=== PATIENT | male | born 1985 | race Caucasian/White ===

== ENCOUNTER → 2024-05-11 | Outpatient (CLI) | payer BC, SELFPAY ==
[2024-05-11 09:19] LABS: Absolute Lymphocyte Count 1.92 X10^3/uL (0.83-4.51); Basophil# 0.05 X10^3/uL; Basophil% 0.8 % (0-1); Eosinophil# 0.51 X10^3/uL; Eosinophils% 8.7 % (0-5); Hematocrit 41.7 % (40-54); Hemoglobin 13.6 g/dL (13.0-16.5); Lymphocyte # 1.92 X10^3/ul (0.83-4.51); Lymphocyte % 32.6 % (19-41); Mean Corp Hgb Conc 32.6 g/dL (32-36); Mean Corpuscular Hgb 26.8 pg (27.0-32.0); Mean Corpuscular Volume 82.2 fL (80-94); Mean Platelet Vol. 9.1 fl (6.2-12.0); Monocyte# 0.45 X10^3/uL; Monocyte% 7.6 % (0-10); NRBC Flagged by Analyzer 0 % (0-5); Neutrophil # 2.95 X10^3/uL (2.7-7.7); Neutrophil % 50.1 % (47-70); Platelet Count 341 K/mm3 (150-450); RBC Distribution Width CV 13.2 % (11.6-14.6); RBC Distribution Width SD 39.6 fl (35.1-43.9); Red Blood Count 5.07 M/mm3 (4.6-6.2); White Blood Count 5.9 K/mm3 (4.4-11.0)
[2024-05-11 10:01] LABS: ALB/GLOB Ratio 1.1 RATIO (0.9-2.4); AST(SGOT) 26 U/L (15-37); Alanine Aminotransfer ALT/SGPT 28 U/L (16-61); Albumin, Serum 4.1 g/dL (3.2-5.0); Alkaline Phosphatase 91 U/L (45-117); Anion Gap 8 (5-15); BUN 11 mg/dL (7-18); BUN/Creat Ratio 10.9 RATIO (10-20); Calcium,Total 9.4 mg/dL (8.5-10.1); Chloride 106 mmol/L (98-107); Cholesterol 213 mg/dL (200); Creatinine, Serum 1.01 mg/dL (0.70-1.30); EST Glomerular Filtration Rate 87 mL/min (>60); Est Glom Filt Rate - Afr Amer 105 mL/min (>60); Globulin 3.7 g/dL (2.2-4.2); Glucose 99 mg/dL (74-106); High Density Lipoprotein 41 mg/dL; Potassium 4.1 mmol/L (3.5-5.1); Protein, Total 7.8 g/dL (6.4-8.2); Sodium Level 140 mmol/L (136-145); Triglycerides 236 mg/dL; Very Low Density Lipoprotein 47 mg/dL (5-40)
[2024-05-11 10:03] LABS: Hemoglobin A1c 5.5 % (3.8-5.6)
[2024-05-12 13:08] LABS: PSA, Free 0.36 ng/mL; PSA, Free % 32.4 % (.)
== END | disposition home or self-care (01) ==
LOC: LAB 08:34
PROVIDERS: Referring Provider Family Medicine; Visit Provider Family Medicine
DX: E78.2 Mixed hyperlipidemia (principal); Z13.228 Encounter for screening for other metabolic disorders; Z12.5 Encounter for screening for malignant neoplasm of prostate; Z13.6 Encounter for screening for cardiovascular disorders
CPT/HCPCS: 36415; 80053; 80061; 83036; 84153; 84154; 84443; 85025

== ENCOUNTER 2024-08-23 06:17 | Day surgery (SDC) | payer BC, SELFPAY ==
[2024-08-23 06:35] VITALS: BP 112/83; PULSE 65; RESP 14; TEMP 36.7; O2SAT 100; BMI 25.9
--- NOTE | 2024-08-23 07:15 | PCM.HP.BLA ---
History and Physical Date of Admission: 08/23/24 Date of Service: 08/12/24 MR#: [id number] Acct: [id number] Name: ISAIAS BARRETO Rep #: [id number] : 1985 Provider: Dr. 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: No Is patient in pain?: No Allergies No Known Allergies Allergy (Unverified 08/12/24 08:35) Medications ?Medication ?Instructions ?Recorded ?Confirmed ?Type Hydrocortisone 2.5%/lidocaine 5% #30 ea 08/12/24 08/12/24 Rx suppository (cmpd) (hydrocortisone 2.5%/lidocaine 5% suppository (compound)) amlodipine 5 mg tablet 5 mg PO QDAY 08/12/24 08/12/24 History atorvastatin 10 mg tablet 10 mg PO QHS 08/12/24 08/12/24 History dextroamphetamine-amphetamine ER 20 mg PO QAM 08/12/24 08/12/24 History 20 mg 24hr capsule,extend release (Adderall XR) escitalopram oxalate 20 mg tablet 20 mg PO QDAY 08/12/24 08/12/24 History (Lexapro) fenofibrate nanocrystallized 145 145 mg PO QDAY 08/12/24 08/12/24 History mg tablet Have you fallen in the past year?: No PFSH Medical History (Updated 08/12/24 @ 11:[address] Fabiola Oseguera MD) Hypertension Hemorrhoids Mixed hyperlipidemia Attention deficit disorder Blood in stool Surgical History (Updated 08/12/24 @ 08:46 by Karina Saavedra) No history of previous surgery Family History (Updated 08/12/24 @ 08:49 by Karina Saavedra) Father Cancer Prostate cancerGrandfather Cancer Prostate cancer Social History (Updated 08/12/24 @ 08:49 by Karina Saavedra) Smoking Status: Never smoker alcohol intake: current alcohol intake frequency: 0-2 drinks per day Alcohol type: beer, wine and hard liquor substance use type: does not use HPI HPI HPI: 39-year-old male presents due to bright red blood per rectum. Patient states that he has had this for quite some time but states it has been worse in the last 2 months. It does not happen with every bowel movement but is happening more often. Patient does admit to spending prolonged times on the toilet and some straining. Patient states he has been using some Preparation H which has helped. Patient does state he has known hemorrhoids. Patient states he has bowel movements daily denies any family history of colon cancer. Patient never had previous colonoscopy. Patient denies any chronic abdominal pain/nausea/vomiting. Patient states he has reflux maybe once every 2 to 3 months. ROS General General: Yes fatigue; No weight change, appetite, colon cancer, breast cancer or weakness HEENT HEENT: No difficulty swallowing, eye injury, eye surgery, swollen glands or hoarseness Endo Endocrine: No thyroid disease, diabetes mellitus, thyroid cancer, Hair loss, heat intolerance or cold intolerance Skin Skin: No rash or changing moles Breast Breast: No left breast lump, right breast lump, nipple discharge, breast pain, abnormal mammogram, abnormal US or breast enlargement Musc Musculoskeletal: No back problems, arthritis, rheumatoid arthritis, gout or joint pain Cardio Cardiovascular: Yes high blood pressure; No murmur, pacemaker, heart disease, atrial fibrillation, heart attack, heart stent, palpitations, shortness of breat with exertion or chest pain Additional Details: Hyperlipidemia Psych Psychiatric: No depression, anxiety or hearing voices Additional Details: ADD Resp Respiratory: Yes shortness of breath, No sleep apnea, No cough, No COPD, No asthma, No emphysema and No wheezing Gastro Gastrointestinal: No abdominal pain, No nausea or vomiting, No diarrhea, No constipation, Yes blood in stool, No acid reflux, Yes hemorrhoids, No ulcers, No gallbladder problem and No black,tarry stools Laz Hematologic: No blood thinners, No blood disorders, No bleeding, No anemia and No blood clots Neuro Neurologic: No system reviewed and no additional complaints, except as documented, No as per HPI, No abnormal gait, No abnormal hearing, No abnormal movements, No abnormal speech, No behavioral changes, No burning sensations, No confusion, No convulsions, No disequilibrium, No dizziness, No localized weakness, No frequent falls, No headache(s), No lack of coordination, No loss of vision, No memory loss, No numbness, No other visual disturbances, No radicular pain, No restless legs, No sensory deficit, No syncope, No tingling, No tremor(s), No weakness and No other Exam Const General: cooperative, healthy appearing, comfortable and no acute distress HENOH Head: normocephalic and atraumatic Neck Neck: supple Resp Effort & Inspection: normal respiratory effort Cardio Rate: regular rate GI Inspection: non-distended Palpation: soft, no hernias and nontender Other: SEB: Patient some external residual tissue at 12:00 and 4:00; with internal hemorrhoids largest at 12:00 appear to be a little irritated, no gross blood no mass on exam Skin General: no rashes or lesions noted Neuro General: CN's II-XI intact bilaterally Extrem General: normal to inspection Psych Mental Status: mental status grossly normal Attitude: cooperative Assessment and Plan Assessment and Plan (1) BRBPR (bright red blood per rectum): Status: Acute Medications: New Hydrocortisone 2.5%/lidocaine 5% suppository (cmpd) (hydrocortisone 2.5%/lidocaine 5% suppository (compound)) Insert one rectally twice daily as needed 30 ea 1RF Plan Discussed with patient due to the internal hemorrhoids would recommend a suppository not just the cream. Recommend not sitting for prolonged periods on the toilet as well as avoid straining. I have discussed the above with the patient. I have offered the patient colonoscopy for evaluation. I have explained the risks/benefits of the procedure and described the procedure. I have discussed the risks with the patient, including but not limited to: infection, bleeding, perforation of the GI tract requiring emergency surgery, inability to complete the procedure, injury to any internal organs, complications of anesthesia, etc. - the patient understands and agrees to proceed. I have answered all the patient's questions to the patient's satisfaction and the patient has no further questions. The patient has been given instructions for the colon cleansing preparation. MiraLAX Dulcolax prep?1 day clears Fabiola Oseguera M.D. Pager: [phone] [facility] [address] [place] [address], [address] [place] [address] Office: [phone] Coding Level of Care Code Off vis,new,level 3 Diagnoses BRBPR (bright red blood per rectum) K62.5 Clinical Quality Measures Falls Risk Screening/Assistive Devices Have you fallen in the past year?: No 08/12/24 1105 <Electronically signed by Fabiola Oseguera MD> Date Fabiola Oseguera MD
--- NOTE | 2024-08-23 07:23 | PRE.ANES_ITS ---
ASA Classification* ASA Classification ASA Classification: 2 Assessment & Plan Anesthesia* Anesthesia Assessment Anesthesia Assessment: Discussed sedation and/or anesthesia options, risks, benefits, and alternatives with patient/parents/legal guardian/POA. Questions invited. The patient/parents/legal guardian/POA seems to understand and agrees to proceed with anesthesia plan. Reviewed the physical assessment, medical history, allergy history and patient home medications list prior to surgery/procedure/anesthetic and documented any changes. Performed airway and anesthesia risk assessments. Anesthesia Type Anesthesia Type: MAC History Source History Obtained from:: Patient and Chart Anesthesia Focused Assessment* Temperature: 98.0 F Pulse Rate: 65 Blood Pressure: 112/83 Respiratory Rate: 14 Pulse Ox: 100 Oxygen Delivery Method: Room Air Airway Assessment Mouth opens: >3 cm Mallampati Score: I Teeth Condition: Intact Neck Range of motion (ROM): Full ROM Focused Labs Anesthesia Preop lab: CBC WBC 5.9 K/mm3 (4.4-11.0) 05/11/24 08:36 RBC 5.07 M/mm3 (4.6-6.2) 05/11/24 08:36 Hgb 13.6 g/dL (13.0-16.5) 05/11/24 08:36 Hct 41.7 % (40-54) 05/11/24 08:36 Plt Count 341 K/mm3 (150-450) 05/11/24 08:36 CHEMISTRY Potassium 4.1 mmol/L (3.5-5.1) 05/11/24 08:36 Sodium 140 mmol/L (136-145) 05/11/24 08:36 BUN 11 mg/dL (7-18) 05/11/24 08:36 Creatinine 1.01 mg/dL (0.70-1.30) 05/11/24 08:36 Glucose 99 mg/dL (74-106) 05/11/24 08:36 TSH 1.620 uIU/mL (0.358-3.740) 05/11/24 08:36 COAG Pre-Assessment Diagnosis/Proposed Procedure Planned Operative Procedure(s): COLONOSCOPY Anesthesia History 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 When Was Last Pacemaker Check QUESTION #4 FULL TEXT: You/Your Family Experience fever (hyperthermia) with Anesthesia Last Oral Intake Last Oral intake: Last Oral Intake NPO since 05:30 08/23/24 06:35 Meds taken in AM with sips of Yes 08/23/24 06:35 water? Meds patient instructed to AMLODIPINE 08/23/24 06:35 take am of surgery Any additional information?: Yes Meds taken in AM with sips of water?: Yes PONV PONV - instrument technician helper: PONV - instrument technician helper Female No 08/19/24 12:49 HX of Motion Sickness No 08/19/24 12:49 HX of N/V After Surgery No 08/19/24 12:49 Non-Smoker Yes 08/19/24 12:49 Duration of Surgery greater No 08/19/24 12:49 than 60 minutes Number of Risk Factors 1 08/19/24 12:49 PONV Score Low Risk 08/19/24 12:49 Height & Weight Height & Weight: Anesthesia: Height & Weight Height 6 ft 08/23/24 06:35 Weight: 87 kg 08/23/24 06:35 Body Mass Index (BMI) 25.9 08/23/24 06:35 Respiratory Assessment Respiratory Assessment - instrument technician helper: Respiratory Tract Infection Hx - instrument technician helper Hx Respiratory Tract Infection Yes: GI SYMPTOMS, TEMP 100.4 08/19/24 12:49 ON 08/16, NOTHING HIGHER STOP Sleep Apnea STOP Sleep Apnea - instrument technician helper: STOP Sleep Apnea - instrument technician helper Hx Hypertension No 08/19/24 12:49 Hx Sleep Apnea No 08/19/24 12:49 CPAP BIPAP Do you snore loudly (louder No 08/19/24 12:49 than talking or can be heard Do you often feel tired/ No 08/19/24 12:49 fatigued/ sleepy during daytime? Has anyone observed you stop No 08/19/24 12:49 breathing during sleep? STOP Results Negative 08/19/24 12:49 QUESTION #5 FULL TEXT : Do you snore loudly (louder than talking or can be heard through closed doors)? 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 Specify any problems Hx of Preganancy in last 3 N/A 08/19/24 12:49 Months Nurse Filling Out Transfusion VCHRISTIN 08/19/24 12:49 & Questions: Date: 08/19/24 08/19/24 12:49 Time: 12:51 08/19/24 12:49 Patient unable to answer at this time (ie. confused, unrespo /Reproduction History /Reproductive History - instrument technician helper: /Reproductive Hx- instrument technician helper Hx Now Gestational Age (in weeks): EDC: Hx Hx Para Hx Section SAB PFSH Medical History Depression Anxiety History of GI bleed Non-smoker Hypertension Hemorrhoids Mixed hyperlipidemia Attention deficit disorder Blood in stool Home Medications ?Medication ?Instructions ?Recorded ?Last Taken ?Type Hydrocortisone 2.5%/lidocaine 5% #30 ea 08/12/24 Unknown Rx suppository (cmpd) (hydrocortisone 2.5%/lidocaine 5% suppository (compound)) amlodipine 5 mg tablet 10 mg PO QDAY 08/12/24 08/23/24 History atorvastatin 10 mg tablet 10 mg PO DAILY 08/12/24 08/22/24 History dextroamphetamine-amphetamine ER 20 mg PO QAM 08/12/24 08/22/24 History 20 mg 24hr capsule,extend release (Adderall XR) escitalopram oxalate 20 mg tablet 20 mg PO QDAY 08/12/24 08/22/24 History (Lexapro) fenofibrate nanocrystallized 145 145 mg PO QDAY 08/12/24 08/22/24 History mg tablet Allergy/AdvReac Type Severity Reaction Status Date / Time No Known Allergies Allergy Verified 08/19/24 12:43 Family History Father Cancer Prostate cancer Grandfather Cancer Prostate cancer Surgical History Hx of surgical procedure No history of previous surgery Social History Smoking Status: Never smoker alcohol intake: current alcohol intake frequency: 0-2 drinks per day Alcohol type: beer, wine and hard liquor substance use type: does not use Review of Systems (Anesthesia) ROS Narrative System reviewed and no additional complaints, except as documented.
[2024-08-23 07:27] VITALS: BP 112/83; PULSE 65; RESP 14; TEMP 36.7; O2SAT 100
--- NOTE | 2024-08-23 07:30 | COLBX_PTH ---
PATIENT: ISAIAS BARRETO LOC: EN U#:[id number] AGE/SX: 39/M ROOM: RE08/23/[address]: Dr. Fabiola Oseguera MD : 1985 BED: DIS: 08/23/2024 SPEC #: [id number] RECD: 08/23/24 09:37 STATUS: CM REQ #: [id number] ZAHIDA: 08/23/24 07:[address]: Fabiola Oseguera DEPT: SURGICAL PATHOLOGY RECD BY: Patricia Olivares ENTERED: 08/23/24 11:38 SP TYPE: COLON BX OTHR DR: Davina Arreguin, [facility], DO Tissues: Descending colon Procedures: Surgery Specimen Level IV HEADER OPERATION: Colonoscopy PRE-OP DIAGNOSIS: Bright red blood per rectum TISSUE SUBMITTED: Descending polyps x4 MICROSCOPIC DIAGNOSIS Descending colon polyps x4, biopsy: Fragments of hyperplastic polyp. 08/24/2024 MICROSCOPIC DESCRIPTION Slides are reviewed. GROSS DESCRIPTION Received in fixative is one container labeled with the patient's name and designated Descending colon polyps x4. The specimen consists of multiple irregular fragments of light murphy soft tissue that in aggregate measure 1.0 x 0.5 x 0.2 cm. The specimen is totally submitted in one cassette. 08/23/2024 [id number]
[2024-08-23 08:20] VITALS: BP 112/83; BP 99/70; PULSE 62; RESP 14; TEMP 36.2; O2SAT 99
--- NOTE | 2024-08-23 08:21 | OP.COLON_ITS ---
Patient Name: Orville Berrios Procedure Date: 08/23/2024 7:18 AM Date of : 1985 Age: 39 Procedure: Colonoscopy Indications: Rectal bleeding Providers: Fabiola Oseguera MD Referring MD: Davina Arreguin Do Medicines: Monitored Anesthesia Care Patient Profile: This is a 39 year old male. Last Colonoscopy: none. The patient's first colonoscopy is today. Complications: No immediate complications. Procedure: Pre-Anesthesia Assessment: - Prior to the procedure, a History and Physical was performed, and patient medications and allergies were reviewed. The patient's tolerance of previous anesthesia was also reviewed. The risks and benefits of the procedure and the sedation options and risks were discussed with the patient. All questions were answered, and informed consent was obtained. Prior Anticoagulants: The patient has taken no anticoagulant or antiplatelet agents. ASA Grade Assessment: Per anesthesia. After reviewing the risks and benefits, the patient was deemed in satisfactory condition to undergo the procedure. After I obtained informed consent, the scope was passed under direct vision. Throughout the procedure, the patient's blood pressure, pulse, and oxygen saturations were monitored continuously. The pediatric colonoscope was introduced through the anus and advanced to the cecum, identified by the ileocecal valve. The colonoscopy was technically difficult and complex due to significant looping. The patient tolerated the procedure well. The quality of the bowel preparation was good. Scope In: 7:33:56 AM Scope Withdrawal Time 0 hours 14 minutes 11 seconds Scope Out: 8:15:56 AM Total Procedure Duration Time 0 hours 42 minutes 0 seconds Findings: Hemorrhoids were found on perianal exam. Non-bleeding external and internal hemorrhoids were found. The hemorrhoids were small and Grade I (internal hemorrhoids that do not prolapse). Four sessile polyps were found in the descending colon. The polyps were less than 5 mm in size. These polyps were removed with a cold biopsy forceps. Resection and retrieval were complete. The exam was otherwise without abnormality. Impression: - Hemorrhoids found on perianal exam. - Non-bleeding external and internal hemorrhoids. - Four less than 5 mm polyps in the descending colon, removed with a cold biopsy forceps. Resected and retrieved. - The examination was otherwise normal. Recommendation: - Discharge patient to home. - Resume previous diet. - Continue present medications. - Await pathology results. - Repeat colonoscopy in 5 years for surveillance based on pathology results. Procedure Code(s): --- Professional --- 13304, Colonoscopy, flexible; with biopsy, single or multiple Diagnosis Code(s): --- Professional --- K64.0, First degree hemorrhoids D12.4, Benign neoplasm of descending colon K62.5, Hemorrhage of anus and rectum CPT copyright 2021 [employer]. All rights reserved. The codes documented in this report are preliminary and upon nuclear medicine supervisor review may be revised to meet current compliance requirements. MD Fabiola Ramey MD 08/23/2024 8:20:59 AM This report has been signed electronically. Number of Addenda: 0 Note Initiated On: 08/23/2024 7:18 AM
--- NOTE | 2024-08-23 08:22 | OP.CCLET_ITS ---
08/23/2024 Davina Arreguin Do Re : Colonoscopy procedure for Orville Berrios Dear Rodríguez This procedure was performed on Friday, August 23, 2024. My impressions and recommendations are as follows: Impressions : - Hemorrhoids found on perianal exam. - Non-bleeding external and internal hemorrhoids. - Four less than 5 mm polyps in the descending colon, removed with a cold biopsy forceps. Resected and retrieved. - The examination was otherwise normal. Recommendations : - Discharge patient to home. - Resume previous diet. - Continue present medications. - Await pathology results. - Repeat colonoscopy in 5 years for surveillance based on pathology results. My findings are described in the full procedure note, which is enclosed. If I can be of further assistance, please feel free to contact me at Doctor phone number(s): , Work: . Sincerely, MD Fabiola Ramey MD 08/23/2024 8:20:59 AM This report has been signed electronically.
--- NOTE | 2024-08-23 08:24 | PCM.POST.ANE ---
Anesthesia: Postop Eval I Current Vital Signs Temperature: 97.1 F Pulse Rate: 62 Blood Pressure: 99/70 Respiratory Rate: 16 Pulse Ox: 100 Oxygen Delivery Method: Room Air Assessment Airway patent: Yes Spontaneous unlabored respirations: Yes Mental status: Asleep nausea: No Vomiting: No Anesthesia Complication: No Fluid Hydration Crystalloid volume administer (ml): 120 Total IV fluid infused: 120 Progress Note Anesthesia document: Postop Eval 1 completed: Yes
[2024-08-23 08:25] VITALS: BP 112/83; BP 97/70; BP 99/70; PULSE 62; RESP 14; RESP 16; TEMP 36.2; O2SAT 100
[2024-08-23 08:32] VITALS: BP 103/77; BP 112/83; PULSE 71; RESP 14; TEMP 36.8; O2SAT 99
[2024-08-23 08:59] VITALS: BP 112/83
--- NOTE | 2024-08-23 09:13 | PCM.POSTANE2 ---
Anesthesia Postop Eval I Sum Postop Eval Completion status Anesthesia document: Postop Eval 1 completed: Yes Anesthesia Postop Eval I Summary Anesthesia Postop Eval I Summary: Anesthesia Postop Eval I: Assessment Summary Airway patent Yes 08/23/24 08:25 [email or web address] Spontaneous unlabored Yes 08/23/24 08:25 [email or web address] respirations Mental status Asleep 08/23/24 08:25 [email or web address] nausea No 08/23/24 08:25 [email or web address] Vomiting No 08/23/24 08:25 [email or web address] Anesthesia Postop Eval I: Fluid Summary Crystalloid volume administer 120 08/23/24 08:25 [email or web address] (ml) Colloids volume administered ( ml) Blood Product volume administered (ml) Total IV fluid infused 120 08/23/24 08:25 [email or web address] Anesthesia Postop Eval I: Summary Notes Anesthesia Complication No 08/23/24 08:25 [email or web address] Anesthesia Complication Comment: Post-operative progress note Anesthesia: Postop Eval II Evaluation Mental status: Awake and Calm Pain Level: 0 nausea: No Vomiting: No Complications Anesthesia Complication: No
== END 2024-08-23 09:10 | disposition home or self-care (01) ==
LOC: EN 06:17 → AC 06:18
PROVIDERS: PCP Family Medicine; Referring Provider Family Medicine; Visit Provider Surgery
PROC: 0DJD8ZZ Inspection of Lower Intestinal Tract, Via Natural or Artificial Opening Endoscopic (ICD-10-PCS; CPT 45378; principal; 2024-08-23 07:25)
DX: K62.5 Hemorrhage of anus and rectum (principal); D12.4 Benign neoplasm of descending colon; E78.2 Mixed hyperlipidemia; I10 Essential (primary) hypertension; Z79.899 Other long term (current) drug therapy; K64.0 First degree hemorrhoids; K64.4 Residual hemorrhoidal skin tags
CPT/HCPCS: 45380; 88305; A4216; J2405

== ENCOUNTER → 2025-06-13 | Outpatient (CLI) | payer MEDICAID, SELFPAY ==
[2025-06-13 16:42] LABS: Hematocrit 40.9 % (40-54); Hemoglobin 13.4 g/dL (13.0-16.5); Immature Granulocytes Count 0.050 X10^3/uL (0.0-0.0); Mean Corp Hgb Conc 32.8 g/dL (32-36); Mean Corpuscular Volume 82.6 fL (80-94); Mean Platelet Vol. 9.5 fl (6.2-12.0); NRBC Flagged by Analyzer 0 % (0-5); Platelet Count 366 K/mm3 (150-450); RBC Distribution Width CV 13.9 % (11.6-14.6); RBC Distribution Width SD 41.6 fl (35.1-43.9); Red Blood Count 4.95 M/mm3 (4.6-6.2); White Blood Count 5.9 K/mm3 (4.4-11.0)
[2025-06-13 17:10] LABS: AST(SGOT) 26 U/L (<=37); Alanine Aminotransfer ALT/SGPT 22 U/L (<=46); Albumin, Serum 4.6 g/dL (3.5-5.0); Alkaline Phosphatase 86 U/L (40-129); Anion Gap 12 (5-15); BUN 11 mg/dL (4-19); BUN/Creat Ratio 13.4 RATIO (10-20); Calcium,Total 10.0 mg/dL (7.6-11.0); Carbon Dioxide 26.3 mmol/L (21.0-32.0); Chloride 104 mmol/L (98-108); Cholesterol 220 mg/dL (<=200); Globulin 2.8 g/dL (2.2-4.2); Glucose 95 mg/dL (70-99); Low Density Lipoprotein Calc. 130 mg/dL; PSA,Total - Annual Screen 0.94 ng/mL (0.02-4.00); Potassium 4.1 mmol/L (3.3-5.1); Triglycerides 251 mg/dL; Very Low Density Lipoprotein 50 mg/dL (5-40); cholesterol:hdl ratio screen 4.88
[2025-06-13 20:39] LABS: Color, Urine Straw (Yellow); Glucose, Dipstick 50 mg/dl (Normal); Ketone-Dipstick Negative (Negative); Leukocyte Esterase-Dipstick Negative /ul (Negative); Nitrite-Dipstick Negative (Negative); Occult Blood-Urine Negative /ul (Negative); Protein-Dipstick Negative (Negative); Specific Gravity, Urine 1.010 (1.002-1.030); Urine Bilirubin Dipstick Negative (Negative)
== END | disposition home or self-care (01) ==
PROVIDERS: PCP Family Medicine
DX: I10 Essential (primary) hypertension (principal); Z12.5 Encounter for screening for malignant neoplasm of prostate; Z13.1 Encounter for screening for diabetes mellitus; E78.2 Mixed hyperlipidemia
CPT/HCPCS: 84153; 36415; 80053; 80061; 81002; 83036; 84443; 85025; G0103